=== PATIENT | male | born 2000 | race Caucasian/White ===

== ENCOUNTER 2023-08-04 22:03 | Emergency (ER) | payer OTHER ==
[~2023-08-04] VITALS: Ht 182.9 cm; Wt 86.2 kg
[2023-08-05 00:19] VITALS: BP 120/68; TEMP 98.8; O2SAT 98
[2023-08-05 00:37] LABS: Trichomonas vaginalis (AMP) NOT DETECTED (NEGATIVE)
[2023-08-05 01:01] LABS: GC DNA AMPLIFICATION NEGATIVE (NEGATIVE)
== END 2023-08-05 00:30 | disposition home or self-care (01) ==
LOC: M ED 22:03
DX: N50.811 Right testicular pain (principal)